=== PATIENT | male | born 1955 | race Caucasian/White ===

== ENCOUNTER 2016-05-04 07:14 | Outpatient (CLI) | payer OTHER ==
[2016-05-04 08:13] LABS: ALBUMIN 2.9 g/dL (3.4-4.8); CALCIUM 8.6 mg/dL (8.4-11.0); CREATININE 1.22 mg/dL (0.55-1.30); POTASSIUM 3.9 mmol/L (3.5-5.1); THYROID STIMULATING HORMONE 2.32 uIu/mL (0.34-4.82); TOTAL BILIRUBIN 0.4 mg/dL (0.0-1.0); TOTAL PROTEIN, SERUM 7.3 g/dL (6.4-8.3)
[2016-05-05 08:06] LABS: T4 (THYROXINE) 6.4 ug/dL (4.5-12.0)
[2016-05-05 13:06] LABS: PROSTATE SPECIFIC AG 2.3 ng/mL (0.0-4.0)
[2016-05-06 12:57] LABS: HEMOGLOBIN A1C 5.7 % (4.8-5.6)
== END 2016-05-04 20:40 | disposition home or self-care (01) ==
LOC: SLB 07:14
PROVIDERS: ATTEND Internal Medicine
DX: E78.5 Hyperlipidemia, unspecified (principal); R80.9 Proteinuria, unspecified
CPT/HCPCS: 36415; 80053; 80061; 83036; 84153; 84436; 84443-TC

== ENCOUNTER 2016-05-13 11:58 | Outpatient (CLI) | payer OTHER ==
[2016-05-13 12:32] LABS: BILIRUBIN,URINE NEGATIVE (NEGATIVE); CLARITY/URINE CLEAR (CLEAR); COLOR,URINE YELLOW (YELLOW); GLUCOSE,URINE NEGATIVE (NEGATIVE); KETONES,URINE NEGATIVE (NEGATIVE); LEUKOCYTE ESTERASE ,URINE NEGATIVE (NEGATIVE); NITRITE, URINE NEGATIVE (NEGATIVE); PROTEIN URINE 2+ (NEGATIVE); UROBILINOGEN,URINE 0.2 (0.2-1.0)
[2016-05-13 12:51] LABS: BLOOD, URINE TRACE (NEGATIVE)
[2016-05-13 12:53] LABS: RBC,URINE 0-3 /HPF (0-3)
[2016-05-13 12:54] LABS: BACTERIA,URINE FEW /HPF (None Seen); HYALINE CASTS, URINE 0-2 /LPF (None Seen); MUCUS,URINE None Seen /LPF (None Seen); WBC,URINE 0-3 /HPF (0-3)
== END 2016-05-13 20:13 | disposition home or self-care (01) ==
LOC: SLB 11:58
PROVIDERS: ATTEND Internal Medicine
DX: R80.9 Proteinuria, unspecified (principal)
CPT/HCPCS: 81000-TC